=== PATIENT | male | born 1950 | race Caucasian/White ===

== ENCOUNTER 2019-04-13 10:58 | Outpatient (CLI) | payer OTHER, MEDICARE ==
[2019-04-13] MEDS ORDERED: DIAZ5TAB4 PO (11:26)
== END 2019-04-13 23:59 | disposition home or self-care (01) ==
LOC: STAR 10:58
PROVIDERS: ATTEND Surgery
DX: Z01.818 Encounter for other preprocedural examination (principal); K40.90 Unilateral inguinal hernia, without obstruction or gangrene, not specified as recurrent
CPT/HCPCS: 93005

== ENCOUNTER 2019-04-22 10:58 | Day surgery (SDC) | payer MEDICARE, OTHER ==
[~2019-04-22] VITALS: Ht 172.7 cm; Wt 72.5 kg
[~2019-04-22 10:58] MED LIST: BUPIVACAINE/PF 0.5% ONE; DIAZ5TAB4 PO; EPINEPHRINE 1 MG/ML, 1ML ONE
[2019-04-22 11:20] VITALS: BP 123/73
[2019-04-22] MEDS ORDERED: miralax PO (11:28)
[2019-04-22] MEDS ORDERED: LACTATED RINGERS 1,000 ML IV SCH (12:00)
[2019-04-22] MEDS ORDERED: GABAPENTIN 300 MG CAPSULE PO ONE (12:00)
[2019-04-22] MEDS ORDERED: SCOPOLAMINE PATCH, 1.5MG PATCH.TD72 TD ONE (12:00)
[2019-04-22] MEDS ORDERED: ACETAMINOPHEN 500 MG TABLET PO ONE (12:00)
[2019-04-22] MEDS ORDERED: MIDAZOLAM 1 MG/ML, 2ML ONE (12:13)
[2019-04-22] MEDS ORDERED: ROCURONIUM 10MG/ML,5ML ONE (12:14)
[2019-04-22] MEDS ORDERED: FENTANYL PF 250 MCG/5ML ONE (12:14)
[2019-04-22] MEDS ORDERED: SUCCINYLCHOLINE 20 MG/ML, 10ML ONE (12:15)
[2019-04-22] MEDS ORDERED: PROPOFOL 10 MG/ML, 20ML ONE (12:15)
[2019-04-22] MEDS ORDERED: HYDROmorphone 1 MG/ML, 1ML INJ IVPush PRN (12:30)
[2019-04-22] MEDS ORDERED: LABETALOL 5MG/ML, 20ML IV PRN (12:30)
[2019-04-22] MEDS ORDERED: PROMETHAZINE 12.5 MG SUPP PR PRN (12:30)
[2019-04-22] MEDS ORDERED: MIDAZOLAM 1 MG/ML, 2ML IV PRN (12:30)
[2019-04-22] MEDS ORDERED: PROMETHAZINE 25 MG/ML, 1ML IV PRN (12:30)
[2019-04-22] MEDS ORDERED: DIAZEPAM 5 MG/ML, 2ML IVPush PRN (12:30)
[2019-04-22] MEDS ORDERED: OXYcodone 5 MG/5 ML ORAL.SOL UDC PO PRN (12:30)
[2019-04-22] MEDS ORDERED: ONDANSETRON ODT 8 MG PO PRN (12:30)
[2019-04-22] MEDS ORDERED: ONDANSETRON 2MG/ML, 2ML IV PRN (12:30)
[2019-04-22] MEDS ORDERED: EPHEDRINE 50 MG/ML, 1ML IVPush PRN (12:30)
[2019-04-22] MEDS ORDERED: HALOPERIDOL 5 MG/ML IV PRN (12:30)
[2019-04-22] MEDS ORDERED: MEPERIDINE/PF 25MG/ML,1ML IVPush PRN (12:30)
[2019-04-22] MEDS ORDERED: ALBUTEROL SULFATE 2.5 MG/3 ML NPPB PRN (12:30)
[2019-04-22] MEDS ORDERED: hydrALAzine 20 MG/ML, 1ML IV PRN (12:30)
[2019-04-22] MEDS ORDERED: CEFAZOLIN 1,000 MG ONE ×2 (12:58)
[2019-04-22] MEDS ORDERED: DEXAMETHASONE 4 MG/ML, 1ML ONE ×2 (12:58)
[2019-04-22] MEDS ORDERED: GLYCOPYRROLATE 0.2MG/1ML, 5ML ONE (13:12)
[2019-04-22] MEDS ORDERED: ONDANSETRON 2MG/ML, 2ML ONE ×2 (14:21)
[2019-04-22] MEDS ORDERED: SUGAMMADEX 200 MG/2 ML IVPush ONE (14:21)
[2019-04-22] MEDS ORDERED: OXYcodone 5 MG/5 ML ORAL.SOL UDC ONE (15:00)
[2019-04-22] MEDS ORDERED: FENTANYL PF 100 MCG/2ML ONE (15:00)
[2019-04-22] MEDS: FENTANYL PF 100 MCG/2ML IV PRN ×3 (15:01→15:13)
== END 2019-04-22 18:54 | disposition home or self-care (01) ==
LOC: OUT 10:58
PROVIDERS: ATTEND Surgery
DX: K40.91 Unilateral inguinal hernia, without obstruction or gangrene, recurrent (principal); K40.90 Unilateral inguinal hernia, without obstruction or gangrene, not specified as recurrent; K66.0 Peritoneal adhesions (postprocedural) (postinfection); F41.9 Anxiety disorder, unspecified; E78.5 Hyperlipidemia, unspecified; K21.9 Gastro-esophageal reflux disease without esophagitis; I25.10 Atherosclerotic heart disease of native coronary artery without angina pectoris; M19.90 Unspecified osteoarthritis, unspecified site; F17.210 Nicotine dependence, cigarettes, uncomplicated; Z79.899 Other long term (current) drug therapy
CPT/HCPCS: 49650; 49651; C1781; J0171; J0330; J0690; J1100; J2250; J2405; J2704; J3010; J7120; S2900

== ENCOUNTER → 2020-05-12 | Outpatient (CLI) | payer OTHER ==
[~2020-05-12] MED LIST changes: -BUPIVACAINE/PF 0.5% ONE; -EPINEPHRINE 1 MG/ML, 1ML ONE; +OMNIPAQUE 350 MG/ML, 75ML BOTTLE ONE; +miralax PO
== END | disposition home or self-care (01) ==
LOC: CFH 08:45
PROVIDERS: ATTEND Family Medicine
DX: R22.2 Localized swelling, mass and lump, trunk (principal); R06.02 Shortness of breath
CPT/HCPCS: 71260; Q9967